=== PATIENT | female | born 1995 | race African-American/Black ===

== ENCOUNTER 2024-11-13 15:55 | Emergency (ER) | payer MEDICAID ==
[~2024-11-13] VITALS: Ht 162.6 cm; Wt 65.0 kg
[2024-11-13 15:59] VITALS: O2SAT 98
[2024-11-13] MEDS: TETRACAINE 0.5% OPHTH DROPS 4ML RIGHTEYE ONE (16:00)
[2024-11-13] MEDS: FLUORESCEIN SODIUM 1MG/STRIP RIGHTEYE ONE (16:00)
[2024-11-13] MEDS: METOCLOPRAMIDE HCL 10MG/2ML VIAL IV ONE (16:57)
[2024-11-13] MEDS ORDERED: CYCL15DR11 RIGHTEYE (17:17)
[2024-11-13] MEDS ORDERED: DICL2.5D8 RIGHTEYE (17:18)
[2024-11-13 17:41] VITALS: BP 112/71; PULSE 87; RESP 16; TEMP 36.7; O2SAT 99
== END 2024-11-13 17:43 | disposition home or self-care (01) ==
LOC: ER 15:55
DX: H20.9 Unspecified iridocyclitis (principal); Y08.89XA Assault by other specified means, initial encounter; Y93.89 Activity, other specified; Y92.89 Other specified places as the place of occurrence of the external cause; Y99.8 Other external cause status
CPT/HCPCS: 99285; 70450; 96374; 70486; J2765